=== PATIENT | female | born 1970 | race Caucasian/White ===

== ENCOUNTER 2018-09-09 12:40 | Inpatient (IN) | payer OTHER ==
[2018-09-09 16:06] VITALS: BMI 31.4
--- NOTE | 2018-09-09 17:40 | HP ---
COWS - Scale Resting Pulse: 0= RI 80 or Below Sweatin= No chills or Flushing Restless Observation: 0= Sits Still Pupil Size: 0= Normal to Room Light Bone or Joint Aches: 0= None Runny Nose/ Eye Tearin= None GI Upset > 30mins: 2= Nausea/Diarrhea Tremor Observation: 2= Slight Tremor Visible Yawning Observation: 0= None Anxiety or Irritability: 0= None Goose Flesh Skin: 0=Smooth Skin COWS Score: 4 (patient used multiple drugs today) CIWA Score Nausea/Vomitin-No Nausea/No Vomiting Muscle Tremors: 4-Moderate,w/Arms Extend Anxiety: 0-No Anxiety, at Ease Agitation: 0-Normal Activity Paroxysmal Sweats: No Perspiration Orientation: 3-Disoriented Date>2 days Tacttile Disturbances: 0-None Auditory Disturbances: 0-None Visual Disturbances: 0-None Headache: 0-None Present CIWA-Ar Total Score: 7 - Admission Criteria OASAS Guidelines: Admission for Medically Managed Detox: Requires at least one of the followin. CIWA greater than 12 2. Seizures within the past 24 hours 3. Delirium tremens within the past 24 hours 4. Hallucinations within the past 24 hours 5. Acute intervention needed for co occurring medical disorder 6. Acute intervention needed for co occurring psychiatric disorder 7. Severe withdrawal that cannot be handled at a lower level of care (continued vomiting, continued diarrhea, abnormal vital signs) requiring intravenous medication and/or fluids 8. Patient presents the following: Acute intervention needed for co-occurring med or psych disorder (Patient with staggering gait, altered mental status, lives alone, unsafe for discharge) Admission Criteria Met: Admission criteria met Admission ROS S - HPI Chief Complaint: "I'm tired of the drugs." "I am embarassed to see my family. It is totally out of control. I need help." Allergies/Adverse Reactions: Allergies Allergy/AdvReac Type Severity Reaction Status Date / Time No Known Allergies Allergy Verified 09/09/18 16:42 History of Present Illness: Patient with longstanding polysubstance abuse, including heroin, crack, alcohol , marijuana, tobacco. Patient is on methadone maintenance, states 80 mg daily, last medicated this am and dose is pending verification. No prescribed controlled substances, verified on the [facility] website. States she has been using multiple drugs excessively and needs detox, embarassed to see family as her abuse is totally out of control. Has mild asthma symptoms today, typical, uses albuterol daily, last this am, no respiratory distress today. Does have depression but denies SI or HI at this time. Positive SI in the past. Exam Limitations: Clinical Condition (lethargic from drugs, falls asleep during questioning) - Ebola screening Have you traveled outside of the country in the last 21 days: No Have you had contact with anyone from an Ebola affected area: No Have you been sick,other than usual withdrawal symptoms: No Do you have a fever: No - Review of Systems Constitutional: Malaise EENT: reports: No Symptoms Reported Respiratory: reports: Wheezing GI: reports: Diarrhea : reports: No Symptoms Reported Musculoskeletal: reports: No Symptoms Reported Integumentary: reports: No Symptoms Reported Neuro: reports: No Symptoms reported Endocrine: reports: Other (thyroid disease) Hematology: reports: Anemia Psychiatric: reports: Depressed (no SI/HI), Disorientated Patient History - Patient Medical History Hx Asthma: Yes Hx Chronic Obstructive Pulmonary Disease (COPD): No Hx Cardiac Disorders: No Hx Hypertension: No Hx Seizures: No Hx Diabetes: No Hx Gastrointestinal Disorders: No Hx Genitourinary Disorders: No Hx Sexually Transmitted Disorders: No Hx Renal Disease (ESRD): No Hx Thyroid Disease: Yes (on synthroid) Hx Depression: Yes Hx Suicide Attempt: Yes (tried to overdose in 2016) Hx Schizophrenia: No - Patient Surgical History Past Surgical History: No Hx Orthopedic Surgery: Yes (lumbar surgery) - PPD History Previous Implant?: Yes Documented Results: Negative w/o proof Implanted On Prior R Admission?: No PPD to be Administered?: Yes - Reproductive History Patient is a Female of Child Bearing Age (11 -55 yrs old): Yes (6 children) Last Menstrual Period: 09/02/18 (approximate) Patient : No (HCG neg) - Smoking Cessation Smoking history: Current every day smoker Have you smoked in the past 12 months: Yes Aproximately how many cigarettes per day: 5 Hx Chewing Tobacco Use: No Initiated information on smoking cessation: Yes 'Breaking Loose' booklet given: 09/09/18 - Substance & Tx. History Hx Alcohol Use: Yes Hx Substance Use: Yes Substance Use Type: Alcohol, Cocaine, Heroin, Marijuana, Opiates, Tranquilizers Hx Substance Use Treatment: Yes (OTP, prior detox and rehab) - Substances Abused Alprazolam (Xanax) Route: Oral Frequency: Daily Amount used: 8mg Age of first use: 18 Date of Last Use: 09/09/18 Cocaine Route: Smoking Frequency: Daily Amount used: $100 Age of first use: 18 Date of Last Use: 09/09/18 Marijuana/Hashish Route: Inhalation (vaping) Frequency: Daily Age of first use: 15 Alcohol Route: Oral Frequency: Daily Age of first use: 15 Family Disease History - Family Disease History Family Disease History: Other: Father (unable to stay awake to answer), Mother Admission Physical Exam [facility] - Vital Signs Vital Signs: Vital Signs - 24 hr 09/09/18 16:03 Temperature 97.7 F Pulse Rate 75 Respiratory 18 Rate Blood Pressure 110/67 - Physical General Appearance: Yes: Other (lethargic, falling asleep) HEENTM: Yes: Other (pinpoint pupils) Respiratory: Yes: Wheezing (mild scattered wheezing) Neck: Yes: Within Normal Limits Breast: Yes: Breast Exam Deferred Cardiology: Yes: Within Normal Limits Abdominal: Yes: Within Normal Limits Back: Yes: Within Normal Limits, Normal Inspection Musculoskeletal: Yes: Within Normal Limits, full range of Motion Extremities: Yes: Within Normal Limits, Normal Capillary Refill Neurological: Yes: Depressed Affect, Other (lethargic with no focal weakness) Integumentary: Yes: Track Anderson (right antecubital track anderson, no infection) Lymphatic: Yes: Within Normal Limits - Diagnostic (1) Alcohol dependence with uncomplicated withdrawal Current Visit: Yes Status: Acute (2) Methadone maintenance therapy patient Current Visit: Yes Status: Chronic (3) Benzodiazepine withdrawal Current Visit: Yes Status: Acute Qualifiers: Complication of substance-induced condition: uncomplicated Qualified Code(s ): F13.230 - Sedative, hypnotic or anxiolytic dependence with withdrawal, uncomplicated (4) Nicotine dependence, uncomplicated Current Visit: Yes Status: Chronic Qualifiers: Nicotine product type: cigarettes Qualified Code(s): F17.210 - Nicotine dependence, cigarettes, uncomplicated (5) Asthma Current Visit: Yes Status: Chronic Qualifiers: Asthma severity: mild Asthma persistence: intermittent Asthma complication type: uncomplicated Qualified Code(s): J45.20 - Mild intermittent asthma, uncomplicated (6) Hypothyroid Current Visit: Yes Status: Chronic Qualifiers: Hypothyroidism type: unspecified Qualified Code(s): E03.9 - Hypothyroidism , unspecified (7) Cocaine abuse Current Visit: Yes Status: Chronic (8) Marijuana smoker, continuous Current Visit: Yes Status: Chronic Cleared for Admission [facility] - Detox or Rehab [facility] Level of Care: Medically Managed Detox Regimen/Protocol: Librium (polysubstance abuse, on methadone maintenance) Claeared for Rehab Admission: No S Breath Alcohol Content Breath Alcohol Content: 0 Urine Pregancy Test - Result Urine Test Results: Negative- NO Line Present Urine Drug Screen - Results Drug Screen Negative: No Urine Drug Screen Results: THC-Marijuana, DEBRA-Cocaine, BZO-Benzodiazepines, MTD- Methadone
[2018-09-09] MEDS ORDERED: IBUPROFEN 400 MG TABLET (FP) PO PRN (17:54)
[2018-09-09] MEDS ORDERED: guaiFENesin/D-METHORPHAN HB 10 ML UNIT-DOSE CUPS PO PRN (17:54)
[2018-09-09] MEDS ORDERED: MENTHOL/PHENOL 1 EACH UD MM PRN (17:54)
[2018-09-09] MEDS ORDERED: MAGNESIUM CITRATE 300 ML BOTTLE PO PRN (17:54)
[2018-09-09] MEDS ORDERED: ACETAMINOPHEN 325 MG TABLET (FP) PO PRN (17:54)
[2018-09-09] MEDS ORDERED: LOPERAMIDE HCL 2 MG CAPSULE PO PRN (17:54)
[2018-09-09] MEDS ORDERED: chlordiazePOXIDE HCL 25 MG CAPSULE PO PRN (17:54)
[2018-09-09] MEDS ORDERED: MAGNESIUM HYDROX 2400MG/30ML ORAL SUSPENSION 30 ML CUP PO PRN (17:54)
[2018-09-09] MEDS ORDERED: P-EPHED 60MG/TRIPROLIDI 2.5MG TABLET PO PRN (17:54)
[2018-09-09] MEDS ORDERED: hydrOXYzine PAMOATE 25 MG CAPSULE (FP) PO PRN (17:54)
[2018-09-09] MEDS ORDERED: MAG HYDROX/AL HYDROX/SIMETH 30 ML UNIT-DOSE CUP PO PRN (17:54)
[2018-09-09] MEDS ORDERED: ALBUTEROL SO4 8 GM HFA INHALER IH PRN (18:03)
--- NOTE | 2018-09-09 19:13 | PN ---
[facility] Progress Note Note: Abnormal EKG noted on admission. Denies chest pain or cardiac hx. Will repeat EKG on 09/11 once withdrawal symptoms have been stabilized.
[2018-09-09] MEDS ORDERED: METHADONE HCL 10 MG TABLET (FOR DETOX USE ONLY) PO ONE (23:00)
[2018-09-09] MEDS: THIAMINE HCL 100 MG TABLET (FP) PO SCH (23:31)
[2018-09-09] MEDS: chlordiazePOXIDE HCL 25 MG CAPSULE PO SCH (23:36)
[2018-09-10] MEDS: chlordiazePOXIDE HCL 25 MG CAPSULE PO SCH ×4 (05:28→22:10)
[2018-09-10] MEDS: LEVOTHYROXINE NA 100 MCG TABLET (FP) PO SCH (07:45)
[2018-09-10] MEDS ORDERED: METHADONE HCL 10 MG TABLET (FOR DETOX USE ONLY) PO SCH (10:00)
[2018-09-10] MEDS: METHADONE HCL 40 MG DISPERSABLE TABLET PO SCH (10:15)
[2018-09-10] MEDS: PRENATAL VITAMINS W/ FOLIC ACID TABLET (FP) PO SCH (10:16)
[2018-09-10] MEDS: NICOTINE 21 MG/24 HOURS TOPICAL PATCH TD SCH (10:16)
[2018-09-10 10:29] LABS: HEMATOCRIT 41.8 % (32.4-45.2); HEMOGLOBIN 13.5 GM/dL (10.7-15.3); MCH 28.1 pg (25.7-33.7); MCHC 32.2 g/dl (32.0-36.0); MEAN CELL VOLUME 87.1 fl (80-96); MEAN PLT VOLUME 7.9 fl (7.5-11.1); PLATELET COUNT 271 K/MM3 (134-434); RDW 13.5 % (11.6-15.6)
[2018-09-10 10:41] LABS: ALBUMIN 3.2 g/dl (3.4-5.0); ALK PHOS 130 U/L (45-117); ANION GAP 5 MMOL/L (8-16); BILIRUBIN,TOTAL 0.4 mg/dL (0.2-1); BLOOD UREA NITROGEN 13 mg/dL (7-18); CALCIUM 8.5 mg/dL (8.5-10.1); CHLORIDE 106 mmol/L (98-107); CO2 29 mmol/L (21-32); CREATININE 0.8 mg/dL (0.55-1.3); GLUCOSE,RANDOM 87 mg/dL (74-106); POTASSIUM 4.1 mmol/L (3.5-5.1); SGOT/AST 28 U/L (15-37); SGPT/ALT 32 U/L (13-61); SODIUM 140 mmol/L (136-145); TOT PROT 6.6 g/dl (6.4-8.2)
--- NOTE | 2018-09-10 12:03 | PN ---
S CIWA - CIWA Score Nausea/Vomitin-Mild Nausea/No Vomiting Muscle Tremors: None Anxiety: 4-Mod. Anxious/Guarded Agitation: 1-Slight > Activity Paroxysmal Sweats: 2 Orientation: 0-Oriented Tacttile Disturbances: 0-None Auditory Disturbances: 0-None Visual Disturbances: 0-None Headache: 2-Mild CIWA-Ar Total Score: 10 [facility] Progress Note (SOAP) Subjective: PATIENT ON LIBRIUM DETOX AND MMTP. PATIENT C/O NIGHT SWEATS, BODY ACHES, ANXIETY AND MILD NAUSEA. Objective: 09/10/18 12:01 Laboratory Tests 09/10/18 09/10/18 09/10/18 07:00 07:00 07:00 WBC 9.0 RBC 4.80 Hgb 13.5 Hct 41.8 MCV 87.1 MCH 28.1 MCHC 32.2 RDW 13.5 Plt Count 271 MPV 7.9 Sodium 140 Potassium 4.1 Chloride 106 Carbon Dioxide 29 Anion Gap 5 L BUN 13 Creatinine 0.8 Creat Clearance w eGFR > 60 Random Glucose 87 Calcium 8.5 Total Bilirubin 0.4 AST 28 ALT 32 Alkaline Phosphatase 130 H Total Protein 6.6 Albumin 3.2 L RPR Titer Nonreactive V/S 6AM TPR 98.2-61-18 BP 106/67 PE : ALERT AND ORIENTED X 3 SKIN WARM AND DRY CAR S1S2 RESP CTA BL EXT FULL ROM, NO EDEMA +ANXIETY Assessment: 09/10/18 12:03 WITHDRAWAL SX Plan: CONTINUE DETOX ENCOURAGE ORAL FLUIDS CONTINUE TO MONITOR CLINICALLY
[2018-09-10] MEDS: THIAMINE HCL 100 MG TABLET (FP) PO SCH (22:09)
[2018-09-10] MEDS: MELATONIN 5 MG TABLETS PO PRN (22:10)
[2018-09-11] MEDS: METHADONE HCL 40 MG DISPERSABLE TABLET PO SCH (06:13)
[2018-09-11] MEDS: chlordiazePOXIDE HCL 25 MG CAPSULE PO SCH ×3 (06:13→17:20)
[2018-09-11] MEDS: LEVOTHYROXINE NA 100 MCG TABLET (FP) PO SCH (06:14)
--- NOTE | 2018-09-11 07:13 | EKG ---
Test Reason : Blood Pressure : / mmHG Vent. Rate : 064 BPM Atrial Rate : 064 BPM P-R Int : 162 ms QRS Dur : 084 ms QT Int : 446 ms P-R-T Axes : 061 -13 042 degrees QTc Int : 460 ms NORMAL SINUS RHYTHM CANNOT RULE OUT INFERIOR INFARCT , AGE UNDETERMINED ABNORMAL ECG NO PREVIOUS ECGS AVAILABLE Confirmed by Fareed Ramirez MD ([id number]) on 09/10/2018 10:06:15 AM Referred By: Confirmed By:Fareed Ramirez MD
[2018-09-11] MEDS: NICOTINE POLACRILEX 2 MG GUM BUC PRN ×3 (09:34→21:27)
[2018-09-11] MEDS ORDERED: METHADONE HCL 5 MG TABLET (FOR DETOX USE ONLY) PO SCH (10:00)
[2018-09-11] MEDS: PRENATAL VITAMINS W/ FOLIC ACID TABLET (FP) PO SCH (11:04)
[2018-09-11] MEDS: NICOTINE 21 MG/24 HOURS TOPICAL PATCH TD SCH (11:06)
--- NOTE | 2018-09-11 12:56 | EKG ---
Test Reason : Blood Pressure : / mmHG Vent. Rate : 067 BPM Atrial Rate : 067 BPM P-R Int : 164 ms QRS Dur : 078 ms QT Int : 446 ms P-R-T Axes : 067 -09 025 degrees QTc Int : 471 ms NORMAL SINUS RHYTHM INFERIOR INFARCT (CITED ON OR BEFORE 09-SEP-2018) ABNORMAL ECG WHEN COMPARED WITH ECG OF 09-SEP-2018 18:54, NO SIGNIFICANT CHANGE WAS FOUND Confirmed by VINH SORIA MD ([id number]) on 09/11/2018 12:56:22 PM Referred By: Confirmed By:VINH SORIA MD
--- NOTE | 2018-09-11 15:51 | PN ---
S CIWA - CIWA Score Nausea/Vomitin-No Nausea/No Vomiting Muscle Tremors: None Anxiety: 3 Agitation: 4-Moderately Restless Paroxysmal Sweats: 2 Orientation: 0-Oriented Tacttile Disturbances: 0-None Auditory Disturbances: 0-None Visual Disturbances: 0-None Headache: 0-None Present CIWA-Ar Total Score: 9 [facility] Progress Note (SOAP) Subjective: PATIENT C/O ANXIETY, RESTLESSNESS AND SWEATING. Objective: 09/11/18 15:49 Vital Signs Temperature 97.3 F L 09/11/18 14:30 Pulse Rate 74 09/11/18 14:30 Respiratory Rate 18 09/11/18 14:30 Blood Pressure 109/69 09/11/18 14:30 O2 Sat by Pulse Oximetry (%) Laboratory Tests 09/10/18 09/10/18 09/10/18 07:00 07:00 07:00 WBC 9.0 RBC 4.80 Hgb 13.5 Hct 41.8 MCV 87.1 MCH 28.1 MCHC 32.2 RDW 13.5 Plt Count 271 MPV 7.9 Sodium 140 Potassium 4.1 Chloride 106 Carbon Dioxide 29 Anion Gap 5 L BUN 13 Creatinine 0.8 Creat Clearance w eGFR > 60 Random Glucose 87 Calcium 8.5 Total Bilirubin 0.4 AST 28 ALT 32 Alkaline Phosphatase 130 H Total Protein 6.6 Albumin 3.2 L RPR Titer Nonreactive PE: ALERT AND ORIENTED X 3 SKIN WARM, +FACIAL MOISTURE EXT FULL ROM, NO VISIBLE TREMORS AMB AD VINCENT +RESTLESSNESS Assessment: 09/11/18 15:50 WITHDRAWAL SX Plan: CONTINUE DETOX ENCOURAGE ORAL FLUIDS CONTINUE TO MONITOR
[2018-09-11] MEDS: chlordiazePOXIDE 5 MG CAPSULE PO SCH (22:17)
[2018-09-11] MEDS: MELATONIN 5 MG TABLETS PO PRN (22:17)
[2018-09-11] MEDS: THIAMINE HCL 100 MG TABLET (FP) PO SCH (22:17)
[2018-09-12] MEDS: chlordiazePOXIDE 5 MG CAPSULE PO SCH ×3 (05:36→17:15)
[2018-09-12] MEDS: METHADONE HCL 40 MG DISPERSABLE TABLET PO SCH (05:36)
[2018-09-12] MEDS: NICOTINE POLACRILEX 2 MG GUM BUC PRN ×4 (06:07→21:25)
[2018-09-12] MEDS: LEVOTHYROXINE NA 100 MCG TABLET (FP) PO SCH (07:00)
[2018-09-12] MEDS: NICOTINE 21 MG/24 HOURS TOPICAL PATCH TD SCH (10:16)
[2018-09-12] MEDS: PRENATAL VITAMINS W/ FOLIC ACID TABLET (FP) PO SCH (10:16)
--- NOTE | 2018-09-12 11:45 | PN ---
[facility] Progress Note (SOAP) Subjective: sweats interrupted sleep Objective: 09/12/18 11:44 Vital Signs Temperature 96.8 F L 09/12/18 09:46 Pulse Rate 74 09/12/18 09:46 Respiratory Rate 18 09/12/18 09:46 Blood Pressure 117/77 09/12/18 09:46 O2 Sat by Pulse Oximetry (%) [id number] ambulating no acute distress Assessment: 09/12/18 11:44 mild withdrawal sx Plan: continue detox increase fluids d/c in am
[2018-09-12] MEDS: chlordiazePOXIDE HCL 10 MG CAPSULE PO SCH (22:17)
[2018-09-12] MEDS: MELATONIN 5 MG TABLETS PO PRN (22:17)
[2018-09-12] MEDS: THIAMINE HCL 100 MG TABLET (FP) PO SCH (22:17)
[2018-09-13] MEDS: chlordiazePOXIDE HCL 10 MG CAPSULE PO SCH (06:05)
[2018-09-13] MEDS: METHADONE HCL 40 MG DISPERSABLE TABLET PO SCH (06:05)
[2018-09-13] MEDS: LEVOTHYROXINE NA 100 MCG TABLET (FP) PO SCH (06:05)
[2018-09-13] MEDS: NICOTINE POLACRILEX 2 MG GUM BUC PRN (06:11)
[2018-09-13 07:05] VITALS: BP 93/66; PULSE 70; TEMP 97.7
--- NOTE | 2018-09-13 09:32 | DS ---
[facility] Detox Discharge Summary Admission Date: 09/09/18 Discharge Date: 09/13/18 - History Present History: Alcohol Dependence, Cocaine Dependence, Sedative Dependence, MMTP - Physical Exam Results Vital Signs: Vital Signs Temperature 97.7 F 09/13/18 07:04 Pulse Rate 70 09/13/18 07:04 Respiratory Rate 16 09/13/18 07:04 Blood Pressure 93/66 09/13/18 07:04 O2 Sat by Pulse Oximetry (%) - Treatment Hospital Course: Detox Protocol Followed, Detoxed Safely, Responded well, Discharged Condition Good, Rehab Referral Accepted - Medication Discharge Medications: Ambulatory Orders NK [No Known Home Medication] 09/09/18 - Diagnosis (1) Alcohol dependence with uncomplicated withdrawal Current Visit: Yes Status: Chronic (2) Benzodiazepine withdrawal Current Visit: Yes Status: Chronic Qualifiers: Complication of substance-induced condition: uncomplicated Qualified Code(s ): F13.230 - Sedative, hypnotic or anxiolytic dependence with withdrawal, uncomplicated (3) Asthma Current Visit: Yes Status: Chronic Qualifiers: Asthma severity: mild Asthma persistence: intermittent Asthma complication type: uncomplicated Qualified Code(s): J45.20 - Mild intermittent asthma, uncomplicated (4) Cocaine abuse Current Visit: Yes Status: Chronic (5) Hypothyroid Current Visit: Yes Status: Chronic Qualifiers: Hypothyroidism type: unspecified Qualified Code(s): E03.9 - Hypothyroidism , unspecified (6) Marijuana smoker, continuous Current Visit: Yes Status: Chronic (7) Methadone maintenance therapy patient Current Visit: Yes Status: Chronic (8) Nicotine dependence, uncomplicated Current Visit: Yes Status: Chronic Qualifiers: Nicotine product type: cigarettes Qualified Code(s): F17.210 - Nicotine dependence, cigarettes, uncomplicated - AMA Did Patient Leave Against Medical Advice: No ([facility])
[2018-09-13] MEDS ORDERED: METHADONE HCL 10 MG TABLET (FOR DETOX USE ONLY) PO SCH (10:00)
[2018-09-14] MEDS ORDERED: METHADONE HCL 5 MG TABLET (FOR DETOX USE ONLY) PO SCH (06:00)
== END 2018-09-13 08:50 | disposition other institution (70) | DRG 773 ==
LOC: YASAS 12:40 → Y6N 17:42
PROC: HZ2ZZZZ Detoxification Services for Substance Abuse Treatment (ICD-10-PCS; principal; 2018-09-09)
DX: F10.230 Alcohol dependence with withdrawal, uncomplicated (principal); F11.20 Opioid dependence, uncomplicated; F13.230 Sedative, hypnotic or anxiolytic dependence with withdrawal, uncomplicated; F14.10 Cocaine abuse, uncomplicated; F12.20 Cannabis dependence, uncomplicated; F17.210 Nicotine dependence, cigarettes, uncomplicated; J45.20 Mild intermittent asthma, uncomplicated; E03.9 Hypothyroidism, unspecified; R94.31 Abnormal electrocardiogram [ECG] [EKG]; Z91.5 Personal history of self-harm
CPT/HCPCS: 36415; 80053; 85027; 86593; 93005; 93010